=== PATIENT | male | born 1960 | race Caucasian/White ===

== ENCOUNTER 2021-02-07 15:20 | Inpatient (IN) | payer OTHER ==
[~2021-02-07 15:20] MED LIST: Iopamidol-370 76% 500 ML 1 ML ONE
[2021-02-07] MEDS ORDERED: Aspirin Chewable 81 MG TAB ONE (15:59)
[2021-02-07] MEDS ORDERED: Dexamethasone 10 MG/ML VIAL ONE (15:59)
[2021-02-07] MEDS ORDERED: Azithromycin 500 MG VIAL ONE (15:59)
[2021-02-07] MEDS ORDERED: cefTRIAXone\\ROCEPHIN 1 GM VIAL ONE (15:59)
[2021-02-07 16:05] LABS: #Lymphocytes 0.6 thou/uL (1.20-3.40); #Monocytes 0.3 thou/uL (0.11-0.59); #Neutrophils 5.9 thou/uL (1.40-6.50); %Basophils 0.6 % (0.0-1.0); %Eosinophils 0.1 % (0.0-10.0); %Lymphocytes 8.8 % (21.0-51.0); %Monocytes 4.4 % (0.0-10.0); %Neutrophils 86.1 % (42.0-75.0); Hemoglobin 15.9 g/dL (14.0-18.0); Mean Corpuscular HGB CONC 31.8 g/dL (32.0-36.0); Mean Corpuscular Hemoglobin 30.1 pg (27.0-31.0); Mean Corpuscular Volume 94.7 fL (78.0-98.0); Mean Platelet Volume 7.9 fL (7.4-10.4); Platelet Count 189 thou/uL (130-400); RBC Distribution Width 12.3 % (11.5-14.5); Red Blood Cell (RBC) Count 5.29 mill/uL (4.70-6.10); White Blood Cell (WBC) Count 6.8 thou/uL (4.8-10.8)
[2021-02-07] MEDS ORDERED: Enoxaparin Sodium 100 MG/ML SYRINGE ONE (16:15)
[2021-02-07 16:25] LABS: ALT (SGPT) 46 U/L (8-55); AST (SGOT) 51 U/L (5-34); Albumin 3.8 g/dL (3.5-5.0); Alkaline Phosphatase 82 U/L (40-110); Anion Gap 15 mmol/L (10-20); BUN (Urea Nitrogen) 19 mg/dL (8.4-25.7); Bilirubin, Total 0.9 mg/dL (0.2-1.2); CK (CPK) 318 U/L (30-200); Calc. Creatinine Clearance 0 mL/min (70-130); Calcium 8.7 mg/dL (7.8-10.44); Carbon Dioxide 22 mmol/L (22-29); Chloride 100 mmol/L (98-107); Globulin 2.8 g/dL (2.4-3.5); Glucose 111 mg/dL (70-105); Lipase 30 U/L (8-78); Potassium 4.3 mmol/L (3.5-5.1); Protein, Total 6.6 g/dL (6.0-8.3); Sodium 133 mmol/L (136-145)
[2021-02-07] MEDS ORDERED: Ondansetron PF 4 MG/2 ML Vial IVP PRN (18:18)
[2021-02-07] MEDS ORDERED: Pharmacy to Dose REMDESIVIR IVPB PRN (19:08)
[2021-02-07 20:28] VITALS: BMI 27.9
[2021-02-07] MEDS ORDERED: REMDESIVIR (EUA) 200 MG in Sodium Chloride 0.9% 250 ML 210 ML IV SCH (21:00)
[2021-02-07] MEDS: Melatonin 3 MG TAB PO PRN (22:31)
[2021-02-07] MEDS: Benzonatate 100 MG CAP PO PRN (23:53)
[2021-02-08] MEDS: Benzonatate 100 MG CAP PO PRN ×2 (02:53→21:30)
[2021-02-08] MEDS ORDERED: Melatonin 3 MG TAB PO SCH ×2 (03:00→22:15)
[2021-02-08 06:24] LABS: #Lymphocytes 0.6 thou/uL (1.20-3.40); #Monocytes 0.5 thou/uL (0.11-0.59); #Neutrophils 6.3 thou/uL (1.40-6.50); %Basophils 0.1 % (0.0-1.0); %Eosinophils 0.1 % (0.0-10.0); %Lymphocytes 8.6 % (21.0-51.0); %Monocytes 6.8 % (0.0-10.0); %Neutrophils 84.4 % (42.0-75.0); Hemoglobin 15.7 g/dL (14.0-18.0); Mean Corpuscular HGB CONC 32.2 g/dL (32.0-36.0); Mean Corpuscular Hemoglobin 30.8 pg (27.0-31.0); Mean Corpuscular Volume 95.5 fL (78.0-98.0); Mean Platelet Volume 8.2 fL (7.4-10.4); Platelet Count 196 thou/uL (130-400); RBC Distribution Width 12.2 % (11.5-14.5); Red Blood Cell (RBC) Count 5.11 mill/uL (4.70-6.10); White Blood Cell (WBC) Count 7.4 thou/uL (4.8-10.8)
[2021-02-08 06:42] LABS: AST (SGOT) 56 U/L (5-34); Albumin 3.3 g/dL (3.5-5.0); Anion Gap 17 mmol/L (10-20); BUN (Urea Nitrogen) 19 mg/dL (8.4-25.7); Bilirubin, Total 0.6 mg/dL (0.2-1.2); CRP (Inflammatory) 12.77 mg/dL (= or < 0.5); Calc. Creatinine Clearance 98 mL/min (70-130); Calcium 8.6 mg/dL (7.8-10.44); Carbon Dioxide 19 mmol/L (22-29); Chloride 103 mmol/L (98-107); Globulin 2.8 g/dL (2.4-3.5); Glucose 124 mg/dL (70-105); Potassium 4.7 mmol/L (3.5-5.1); Protein, Total 6.1 g/dL (6.0-8.3); Sodium 134 mmol/L (136-145)
[2021-02-08 06:55] LABS: ALT (SGPT) 45 U/L (8-55)
[2021-02-08 06:59] LABS: Alkaline Phosphatase 79 U/L (40-110)
[2021-02-08] MEDS ORDERED: Acetaminophen 325 MG TAB PO PRN (07:36)
[2021-02-08] MEDS ORDERED: Albuterol Sulfate 2.5 mg/3 ml Neb NEB PRN (07:37)
[2021-02-08] MEDS: Ascorbic Acid 500 mg Chewable Tablet PO SCH (07:52)
[2021-02-08] MEDS: Aspirin 81 mg Enteric Coated Tablet PO SCH (07:52)
[2021-02-08] MEDS: Zinc Sulfate 220 MG CAP PO SCH (07:52)
[2021-02-08] MEDS: Cholecalciferol (Vitamin D3) 400 UNITS TAB PO SCH (07:52)
[2021-02-08] MEDS: guaiFENesin/DM ER PO SCH ×2 (07:52→21:29)
[2021-02-08] MEDS: Enoxaparin Sodium 40 MG/0.4 ML SYRINGE SC SCH ×2 (07:52→21:29)
[2021-02-08] MEDS: Dexamethasone 4 mg/ml Vial SLOW IVP SCH (07:53)
[2021-02-08] MEDS ORDERED: Enoxaparin Sodium 40 MG/0.4 ML SYRINGE SC SCH (09:00)
[2021-02-08] MEDS ORDERED: cefTRIAXone\\ROCEPHIN 1 GM in Sodium Chloride 0.9% 100 ML IVPB SCH (10:00)
[2021-02-08] MEDS ORDERED: Azithromycin 500 MG in Sodium Chloride 0.9% 250 ML 250 ML IVPB SCH (10:00)
[2021-02-08] MEDS: Loperamide HCl 2 MG CAP PO PRN (11:05)
[2021-02-08] MEDS: Ipratropium/Albuterol Sulfate 4 GM AER IH SCH ×2 (12:04→17:42)
[2021-02-08] MEDS ORDERED: Guaifenesin DM 100-10/5 ML UDCUP PO PRN (21:54)
[2021-02-08] MEDS: REMDESIVIR (EUA) 100 MG in Sodium Chloride 0.9% 250 ML 230 ML IV SCH (22:46)
[2021-02-09] MEDS: Ipratropium/Albuterol Sulfate 4 GM AER IH SCH ×4 (01:35→17:18)
[2021-02-09] MEDS ORDERED: traZODone HCl 50 MG TAB PO SCH (02:30)
[2021-02-09] MEDS: Benzonatate 100 MG CAP PO PRN (02:36)
[2021-02-09] MEDS: Dexamethasone 4 mg/ml Vial SLOW IVP SCH (07:39)
[2021-02-09] MEDS: Enoxaparin Sodium 40 MG/0.4 ML SYRINGE SC SCH ×2 (07:39→20:31)
[2021-02-09] MEDS: guaiFENesin/DM ER PO SCH ×2 (07:40→20:31)
[2021-02-09] MEDS: Ascorbic Acid 500 mg Chewable Tablet PO SCH (07:40)
[2021-02-09] MEDS: Aspirin 81 mg Enteric Coated Tablet PO SCH (07:40)
[2021-02-09] MEDS: Acetaminophen 325 MG TAB PO PRN ×2 (07:40→20:32)
[2021-02-09] MEDS: Zinc Sulfate 220 MG CAP PO SCH (07:40)
[2021-02-09] MEDS: Cholecalciferol (Vitamin D3) 400 UNITS TAB PO SCH (07:40)
[2021-02-09] MEDS: ALPRAZolam 0.25 MG TAB PO PRN ×2 (08:42→20:32)
[2021-02-09] MEDS: Loperamide HCl 2 MG CAP PO PRN (11:44)
[2021-02-09] MEDS: REMDESIVIR (EUA) 100 MG in Sodium Chloride 0.9% 250 ML 230 ML IV SCH (22:36)
[2021-02-10] MEDS: ALPRAZolam 0.25 MG TAB PO PRN ×3 (02:16→22:21)
[2021-02-10] MEDS: Ipratropium/Albuterol Sulfate 4 GM AER IH SCH ×5 (02:16→21:30)
[2021-02-10] MEDS: Zinc Sulfate 220 MG CAP PO SCH (08:01)
[2021-02-10] MEDS: Enoxaparin Sodium 40 MG/0.4 ML SYRINGE SC SCH ×2 (08:01→20:53)
[2021-02-10] MEDS: Aspirin 81 mg Enteric Coated Tablet PO SCH (08:01)
[2021-02-10] MEDS: Cholecalciferol (Vitamin D3) 400 UNITS TAB PO SCH (08:01)
[2021-02-10] MEDS: Ascorbic Acid 500 mg Chewable Tablet PO SCH ×2 (08:01→21:17)
[2021-02-10] MEDS: Dexamethasone 4 mg/ml Vial SLOW IVP SCH (08:02)
[2021-02-10] MEDS: guaiFENesin/DM ER PO SCH ×2 (08:02→20:53)
[2021-02-10 08:03] LABS: #Lymphocytes 0.8 thou/uL (1.20-3.40); #Monocytes 0.7 thou/uL (0.11-0.59); #Neutrophils 7.6 thou/uL (1.40-6.50); %Eosinophils 0.1 % (0.0-10.0); %Lymphocytes 8.7 % (21.0-51.0); %Monocytes 7.9 % (0.0-10.0); %Neutrophils 83.3 % (42.0-75.0); Hemoglobin 17.8 g/dL (14.0-18.0); Mean Corpuscular HGB CONC 32.8 g/dL (32.0-36.0); Mean Corpuscular Hemoglobin 31.4 pg (27.0-31.0); Mean Corpuscular Volume 95.9 fL (78.0-98.0); Mean Platelet Volume 7.8 fL (7.4-10.4); Platelet Count 275 thou/uL (130-400); RBC Distribution Width 12.2 % (11.5-14.5); Red Blood Cell (RBC) Count 5.65 mill/uL (4.70-6.10); White Blood Cell (WBC) Count 9.2 thou/uL (4.8-10.8)
[2021-02-10] MEDS: Loperamide HCl 2 MG CAP PO PRN (08:16)
[2021-02-10 08:24] LABS: ALT (SGPT) 45 U/L (8-55); AST (SGOT) 51 U/L (5-34); Albumin 3.3 g/dL (3.5-5.0); Alkaline Phosphatase 100 U/L (40-110); Anion Gap 16 mmol/L (10-20); BUN (Urea Nitrogen) 24 mg/dL (8.4-25.7); Bilirubin, Total 0.9 mg/dL (0.2-1.2); CRP (Inflammatory) 4.44 mg/dL (= or < 0.5); Calc. Creatinine Clearance 112 mL/min (70-130); Calcium 8.9 mg/dL (7.8-10.44); Carbon Dioxide 19 mmol/L (22-29); Chloride 104 mmol/L (98-107); Globulin 2.9 g/dL (2.4-3.5); Glucose 110 mg/dL (70-105); Potassium 4.2 mmol/L (3.5-5.1); Protein, Total 6.2 g/dL (6.0-8.3); Sodium 135 mmol/L (136-145)
[2021-02-10] MEDS ORDERED: Ivermectin 3 MG TAB PO SCH (12:45)
[2021-02-10] MEDS: methylPREDNISolone Sod Succ/PF 110 MG in Sodium Chloride 0.9% 250 ML 250 ML IVPB SCH (12:50)
[2021-02-10] MEDS: Cholecalciferol 1,000 UNITS (25 MCG) TAB PO SCH (20:53)
[2021-02-10] MEDS: Colchicine 0.6 MG TAB PO SCH (20:53)
[2021-02-10] MEDS: Acetaminophen 325 MG TAB PO PRN (21:01)
[2021-02-10] MEDS: REMDESIVIR (EUA) 100 MG in Sodium Chloride 0.9% 250 ML 230 ML IV SCH (22:21)
[2021-02-10] MEDS: Melatonin 3 MG TAB PO PRN (22:23)
[2021-02-11] MEDS: Colchicine 0.6 MG TAB PO SCH ×3 (01:35→20:47)
[2021-02-11] MEDS: Ipratropium/Albuterol Sulfate 4 GM AER IH SCH ×5 (01:40→18:21)
[2021-02-11] MEDS: ALPRAZolam 0.25 MG TAB PO PRN ×2 (03:59→21:04)
[2021-02-11 06:59] LABS: Anion Gap 14 mmol/L (10-20); BUN (Urea Nitrogen) 26 mg/dL (8.4-25.7); CRP (Inflammatory) 3.05 mg/dL (= or < 0.5); Calc. Creatinine Clearance 107 mL/min (70-130); Carbon Dioxide 21 mmol/L (22-29); Chloride 103 mmol/L (98-107); Glucose 138 mg/dL (70-105); Potassium 4.5 mmol/L (3.5-5.1); Sodium 133 mmol/L (136-145)
[2021-02-11] MEDS: Enoxaparin Sodium 40 MG/0.4 ML SYRINGE SC SCH ×2 (08:33→20:48)
[2021-02-11] MEDS: Loperamide HCl 2 MG CAP PO PRN ×2 (08:34→21:04)
[2021-02-11] MEDS: guaiFENesin/DM ER PO SCH ×2 (08:34→20:47)
[2021-02-11] MEDS: Zinc Sulfate 220 MG CAP PO SCH (08:34)
[2021-02-11] MEDS: Aspirin 81 mg Enteric Coated Tablet PO SCH (08:34)
[2021-02-11] MEDS: Ascorbic Acid 500 mg Chewable Tablet PO SCH ×2 (08:34→20:47)
[2021-02-11] MEDS: Ivermectin 3 MG TAB PO SCH (08:36)
[2021-02-11] MEDS: Acetaminophen 325 MG TAB PO PRN (08:51)
[2021-02-11] MEDS: methylPREDNISolone Sod Succ/PF 110 MG in Sodium Chloride 0.9% 250 ML 250 ML IVPB SCH (11:20)
[2021-02-11] MEDS: Cholecalciferol 1,000 UNITS (25 MCG) TAB PO SCH (20:48)
[2021-02-11] MEDS: REMDESIVIR (EUA) 100 MG in Sodium Chloride 0.9% 250 ML 230 ML IV SCH (21:05)
[2021-02-11] MEDS: Melatonin 3 MG TAB PO PRN (23:11)
[2021-02-12] MEDS: Ipratropium/Albuterol Sulfate 4 GM AER IH SCH ×4 (00:29→17:53)
[2021-02-12] MEDS: ALPRAZolam 0.25 MG TAB PO PRN ×2 (00:30→20:20)
[2021-02-12 07:06] LABS: Anion Gap 17 mmol/L (10-20); BUN (Urea Nitrogen) 29 mg/dL (8.4-25.7); Calc. Creatinine Clearance 113 mL/min (70-130); Calcium 9.2 mg/dL (7.8-10.44); Carbon Dioxide 20 mmol/L (22-29); Chloride 104 mmol/L (98-107); Glucose 143 mg/dL (70-105); Potassium 4.5 mmol/L (3.5-5.1); Sodium 136 mmol/L (136-145)
[2021-02-12] MEDS: Aspirin 81 mg Enteric Coated Tablet PO SCH (08:14)
[2021-02-12] MEDS: Zinc Sulfate 220 MG CAP PO SCH (08:14)
[2021-02-12] MEDS: Colchicine 0.6 MG TAB PO SCH ×2 (08:14→20:20)
[2021-02-12] MEDS: Ascorbic Acid 500 mg Chewable Tablet PO SCH ×2 (08:15→20:20)
[2021-02-12] MEDS: Enoxaparin Sodium 40 MG/0.4 ML SYRINGE SC SCH ×2 (08:15→20:23)
[2021-02-12] MEDS: guaiFENesin/DM ER PO SCH ×2 (08:15→20:21)
[2021-02-12] MEDS: Ivermectin 3 MG TAB PO SCH (08:17)
[2021-02-12] MEDS: methylPREDNISolone Sod Succ/PF 110 MG in Sodium Chloride 0.9% 250 ML 250 ML IVPB SCH (11:33)
[2021-02-12] MEDS: Senokot 8.6 MG TAB PO PRN (17:55)
[2021-02-12] MEDS: Melatonin 3 MG TAB PO PRN (20:21)
[2021-02-12] MEDS: Cholecalciferol 1,000 UNITS (25 MCG) TAB PO SCH (20:22)
[2021-02-13] MEDS: Ipratropium/Albuterol Sulfate 4 GM AER IH SCH ×4 (01:58→21:27)
[2021-02-13] MEDS: ALPRAZolam 0.25 MG TAB PO PRN ×2 (03:40→21:28)
[2021-02-13] MEDS: Ivermectin 3 MG TAB PO SCH (08:45)
[2021-02-13] MEDS: Ascorbic Acid 500 mg Chewable Tablet PO SCH ×2 (09:02→21:29)
[2021-02-13] MEDS: Aspirin 81 mg Enteric Coated Tablet PO SCH (09:02)
[2021-02-13] MEDS: Colchicine 0.6 MG TAB PO SCH ×2 (09:02→21:28)
[2021-02-13] MEDS: guaiFENesin/DM ER PO SCH ×2 (09:03→21:28)
[2021-02-13] MEDS: Zinc Sulfate 220 MG CAP PO SCH (09:03)
[2021-02-13] MEDS: Enoxaparin Sodium 40 MG/0.4 ML SYRINGE SC SCH ×2 (09:03→21:28)
[2021-02-13 09:10] LABS: Anion Gap 14 mmol/L (10-20); BUN (Urea Nitrogen) 29 mg/dL (8.4-25.7); CRP (Inflammatory) 0.55 mg/dL (= or < 0.5); Calc. Creatinine Clearance 121 mL/min (70-130); Calcium 8.7 mg/dL (7.8-10.44); Carbon Dioxide 23 mmol/L (22-29); Chloride 103 mmol/L (98-107); Glucose 144 mg/dL (70-105); Potassium 4.5 mmol/L (3.5-5.1); Sodium 135 mmol/L (136-145)
[2021-02-13] MEDS: Senokot 8.6 MG TAB PO PRN (12:03)
[2021-02-13] MEDS: methylPREDNISolone Sod Succ/PF 110 MG in Sodium Chloride 0.9% 250 ML 250 ML IVPB SCH (12:43)
[2021-02-13] MEDS: Melatonin 3 MG TAB PO PRN (21:28)
[2021-02-13] MEDS: Cholecalciferol 1,000 UNITS (25 MCG) TAB PO SCH (21:29)
[2021-02-14] MEDS: Ipratropium/Albuterol Sulfate 4 GM AER IH SCH ×3 (02:16→18:22)
[2021-02-14] MEDS: ALPRAZolam 0.25 MG TAB PO PRN (03:56)
[2021-02-14 06:38] LABS: Anion Gap 13 mmol/L (10-20); BUN (Urea Nitrogen) 28 mg/dL (8.4-25.7); CRP (Inflammatory) Less than 0.50 mg/dL (= or < 0.5); Calc. Creatinine Clearance 130 mL/min (70-130); Calcium 8.7 mg/dL (7.8-10.44); Carbon Dioxide 23 mmol/L (22-29); Chloride 102 mmol/L (98-107); Glucose 145 mg/dL (70-105); Potassium 4.6 mmol/L (3.5-5.1); Sodium 133 mmol/L (136-145)
[2021-02-14] MEDS: Zinc Sulfate 220 MG CAP PO SCH (08:35)
[2021-02-14] MEDS: Aspirin 81 mg Enteric Coated Tablet PO SCH (08:35)
[2021-02-14] MEDS: guaiFENesin/DM ER PO SCH ×2 (08:35→20:39)
[2021-02-14] MEDS: Ascorbic Acid 500 mg Chewable Tablet PO SCH ×2 (08:36→20:37)
[2021-02-14] MEDS: Colchicine 0.6 MG TAB PO SCH ×2 (08:36→20:37)
[2021-02-14] MEDS: Enoxaparin Sodium 40 MG/0.4 ML SYRINGE SC SCH ×2 (08:36→20:39)
[2021-02-14] MEDS ORDERED: Magnesium Citrate 300 ML BOT PO SCH (08:45)
[2021-02-14] MEDS: Ivermectin 3 MG TAB PO SCH (09:22)
[2021-02-14] MEDS: methylPREDNISolone Sod Succ/PF 110 MG in Sodium Chloride 0.9% 250 ML 250 ML IVPB SCH (14:00)
[2021-02-14] MEDS: Cholecalciferol 1,000 UNITS (25 MCG) TAB PO SCH ×2 (20:36→20:38)
[2021-02-14] MEDS: Lorazepam 0.5 MG TAB PO PRN (20:36)
[2021-02-14] MEDS: Senokot 8.6 MG TAB PO SCH ×2 (20:37→21:05)
[2021-02-14] MEDS: Melatonin 3 MG TAB PO PRN (21:07)
[2021-02-15] MEDS: rOPINIRole HCl 0.5 MG TAB PO PRN ×2 (01:05→20:48)
[2021-02-15] MEDS: Lorazepam 0.5 MG TAB PO PRN ×2 (05:59→20:47)
[2021-02-15 06:47] LABS: ALT (SGPT) 73 U/L (8-55); AST (SGOT) 30 U/L (5-34); Albumin 3.1 g/dL (3.5-5.0); Alkaline Phosphatase 124 U/L (40-110); Bilirubin, Direct 0.4 mg/dL (0.1-0.3); Bilirubin, Total 1.1 mg/dL (0.2-1.2); Protein, Total 5.7 g/dL (6.0-8.3)
[2021-02-15 06:48] LABS: Anion Gap 14 mmol/L (10-20); BUN (Urea Nitrogen) 29 mg/dL (8.4-25.7); Calc. Creatinine Clearance 130 mL/min (70-130); Calcium 8.5 mg/dL (7.8-10.44); Carbon Dioxide 20 mmol/L (22-29); Chloride 102 mmol/L (98-107); Glucose 142 mg/dL (70-105); Potassium 4.7 mmol/L (3.5-5.1); Sodium 131 mmol/L (136-145)
[2021-02-15] MEDS: Ipratropium/Albuterol Sulfate 4 GM AER IH SCH ×5 (07:01→20:48)
[2021-02-15] MEDS: Aspirin 81 mg Enteric Coated Tablet PO SCH (08:05)
[2021-02-15] MEDS: Zinc Sulfate 220 MG CAP PO SCH (08:05)
[2021-02-15] MEDS: Acetaminophen 325 MG TAB PO PRN (08:06)
[2021-02-15] MEDS: Colchicine 0.6 MG TAB PO SCH ×2 (08:06→20:48)
[2021-02-15] MEDS: Ascorbic Acid 500 mg Chewable Tablet PO SCH ×2 (08:06→20:47)
[2021-02-15] MEDS: guaiFENesin/DM ER PO SCH ×2 (08:07→20:48)
[2021-02-15] MEDS: Benzonatate 100 MG CAP PO PRN (08:07)
[2021-02-15] MEDS: Enoxaparin Sodium 40 MG/0.4 ML SYRINGE SC SCH ×2 (08:08→20:47)
[2021-02-15] MEDS: Ivermectin 3 MG TAB PO SCH (08:10)
[2021-02-15] MEDS: methylPREDNISolone Sod Succ/PF 110 MG in Sodium Chloride 0.9% 250 ML 250 ML IVPB SCH (15:12)
[2021-02-15] MEDS: Melatonin 3 MG TAB PO PRN (20:47)
[2021-02-15] MEDS: Cholecalciferol 1,000 UNITS (25 MCG) TAB PO SCH (20:48)
[2021-02-15] MEDS: Senokot 8.6 MG TAB PO SCH (20:49)
[2021-02-16] MEDS: Lorazepam 0.5 MG TAB PO PRN ×2 (03:42→21:20)
[2021-02-16] MEDS: Ipratropium/Albuterol Sulfate 4 GM AER IH SCH ×3 (03:52→13:55)
[2021-02-16 06:17] LABS: ALT (SGPT) 60 U/L (8-55); AST (SGOT) 28 U/L (5-34); Alkaline Phosphatase 109 U/L (40-110); Anion Gap 14 mmol/L (10-20); BUN (Urea Nitrogen) 27 mg/dL (8.4-25.7); Bilirubin, Total 1.3 mg/dL (0.2-1.2); Calc. Creatinine Clearance 127 mL/min (70-130); Calcium 8.1 mg/dL (7.8-10.44); Carbon Dioxide 23 mmol/L (22-29); Chloride 100 mmol/L (98-107); Globulin 2.4 g/dL (2.4-3.5); Glucose 133 mg/dL (70-105); Magnesium 2.5 mg/dL (1.6-2.6); Potassium 4.7 mmol/L (3.5-5.1); Protein, Total 5.4 g/dL (6.0-8.3); Sodium 132 mmol/L (136-145)
[2021-02-16] MEDS: Aspirin 81 mg Enteric Coated Tablet PO SCH (09:28)
[2021-02-16] MEDS: Ascorbic Acid 500 mg Chewable Tablet PO SCH ×2 (09:28→21:18)
[2021-02-16] MEDS: Colchicine 0.6 MG TAB PO SCH ×2 (09:28→21:18)
[2021-02-16] MEDS: Enoxaparin Sodium 40 MG/0.4 ML SYRINGE SC SCH ×2 (09:30→21:19)
[2021-02-16] MEDS: Zinc Sulfate 220 MG CAP PO SCH (09:31)
[2021-02-16] MEDS: guaiFENesin/DM ER PO SCH ×2 (09:31→21:18)
[2021-02-16] MEDS: Ivermectin 3 MG TAB PO SCH (09:49)
[2021-02-16] MEDS ORDERED: Senokot S 8.6-50 MG TAB PO PRN (11:17)
[2021-02-16] MEDS: methylPREDNISolone Sod Succ/PF 110 MG in Sodium Chloride 0.9% 250 ML 250 ML IVPB SCH (11:30)
[2021-02-16] MEDS: methylPREDNISolone Sod Succ/PF 125 MG/2 ML VIAL IVP SCH (21:15)
[2021-02-16] MEDS: Cholecalciferol 1,000 UNITS (25 MCG) TAB PO SCH (21:17)
[2021-02-16] MEDS: rOPINIRole HCl 0.5 MG TAB PO PRN (21:18)
[2021-02-16] MEDS: Melatonin 3 MG TAB PO PRN (21:18)
[2021-02-16] MEDS: Senokot 8.6 MG TAB PO SCH (21:19)
[2021-02-17] MEDS: Senokot 8.6 MG TAB PO SCH (00:17)
[2021-02-17] MEDS: Lorazepam 0.5 MG TAB PO PRN (03:35)
[2021-02-17] MEDS ORDERED: Polyethylene Glycol 3350 17 GM Packet PO SCH (09:00)
[2021-02-17] MEDS: Enoxaparin Sodium 40 MG/0.4 ML SYRINGE SC SCH (10:04)
[2021-02-17] MEDS: methylPREDNISolone Sod Succ/PF 125 MG/2 ML VIAL IVP SCH (10:04)
[2021-02-17] MEDS: Aspirin 81 mg Enteric Coated Tablet PO SCH (10:05)
[2021-02-17] MEDS: Ascorbic Acid 500 mg Chewable Tablet PO SCH (10:05)
[2021-02-17] MEDS: Zinc Sulfate 220 MG CAP PO SCH (10:05)
[2021-02-17] MEDS: Ipratropium/Albuterol Sulfate 4 GM AER IH SCH ×3 (10:05→14:00)
[2021-02-17] MEDS: guaiFENesin/DM ER PO SCH (10:05)
[2021-02-17] MEDS: Colchicine 0.6 MG TAB PO SCH (10:05)
[2021-02-17 18:28] VITALS: BP 126/77; TEMP 97.6
== END 2021-02-17 18:52 | disposition home or self-care (01) | DRG 177 ==
LOC: ERS 15:20 → T4-A 17:11
PROVIDERS: ADMIT Internal Medicine; ATTEND Family Medicine
PROC: XW033E5 Introduction of Remdesivir Anti-infective into Peripheral Vein, Percutaneous Approach, New Technology Group 5 (ICD-10-PCS; principal; 2021-02-07)
PROC: 8E0ZXY6 Isolation (ICD-10-PCS; 2021-02-07)
PROC: 5A0955A Assistance with Respiratory Ventilation, Greater than 96 Consecutive Hours, High Flow/Velocity Cannula (ICD-10-PCS; 2021-02-09)
DX: U07.1 COVID-19 (principal); J96.01 Acute respiratory failure with hypoxia; J12.82 Pneumonia due to coronavirus disease 2019; E87.1 Hypo-osmolality and hyponatremia; F41.9 Anxiety disorder, unspecified; F43.10 Post-traumatic stress disorder, unspecified; E80.4 Gilbert syndrome; E04.1 Nontoxic single thyroid nodule; K76.0 Fatty (change of) liver, not elsewhere classified; R16.0 Hepatomegaly, not elsewhere classified; F40.240 Claustrophobia; R19.7 Diarrhea, unspecified; T37.5X5A Adverse effect of antiviral drugs, initial encounter; Z79.899 Other long term (current) drug therapy; K59.03 Drug induced constipation; T36.3X5A Adverse effect of macrolides, initial encounter
CPT/HCPCS: 36415; 71045; 71275; 80048; 80053; 80076; 82550; 82728; 83615; 83690; 83735; 83880; 84484; 85025; 85379; 86140; 93005; 96365; 96367; 96372; 96375; J0456; J0696; J1100; J1650; J2930; J7050; Q9967